=== PATIENT | female | born 1945 ===

== ENCOUNTER 2017-11-09 13:57 | Emergency (ER) | payer OTHER ==
[~2017-11-09] VITALS: Ht 170.2 cm; Wt 77.1 kg
[~2017-11-09 13:57] MED LIST: ANTIVERT25 M1 PO; FLECAINIDE ACET50 MG PO; LIPITOR20 MG PO; LOSARTAN-HCTZ1 EAC2 PO; NORVASC 5MG TAB PO; NORVASC5 MG PO; PEPCID AC20 MG PO; POM (MEDICAMENTO EN PISO) PO; PRADAXA150 MG PO; TOPROL XL50 M1 PO; VASOTEC5 MG PO
== END 2017-11-09 20:53 | disposition home or self-care (01) ==
LOC: ER 13:57
DX: I48.91 Unspecified atrial fibrillation (principal); R53.81 Other malaise